=== PATIENT | male | born 1990 | race Caucasian/White ===

== ENCOUNTER 2024-09-19 09:32 | Day surgery (SDC) | payer BC ==
[2024-09-17 08:53] VITALS: BMI 21.8
--- NOTE | 2024-09-19 08:36 | P.GSHP ---
History of Present Illness H&P Date: 09/19/24 CHIEF COMPLAINT: GERD and change in bowel habits HISTORY OF PRESENT ILLNESS: The patient is a 34-year-old male who presents with gastroesophageal reflux disease and change in bowel habits. Upper and lower endoscopy were offered for further evaluation and management. PAST MEDICAL HISTORY: Please see list. PAST SURGICAL HISTORY: Please see list. MEDICATIONS: Please see list. ALLERGIES: Please see list. SOCIAL HISTORY: No illicit drug use FAMILY HISTORY: No reports of Crohn disease or ulcerative colitis. REVIEW OF ORGAN SYSTEMS: CONSTITUTIONAL: No reports of fevers or chills. GI: Denies any blood in stools or constipation. PHYSICAL EXAM: VITAL SIGNS: Stable GENERAL: Well-developed pleasant in no acute distress. HEENT: No scleral icterus. Extraocular movements grossly intact. Moist buccal mucosa. NECK: Supple without lymphadenopathy. CHEST: Unlabored respirations. Equal bilateral excursions. CARDIOVASCULAR: Regular rate and rhythm. Distal 2+ pulses. ABDOMEN: Soft, nondistended. MUSCULOSKELETAL: No clubbing, cyanosis, or edema. ASSESSMENT: 1. Gastroesophageal reflux disease 2. Change in bowel habit PLAN: 1. Recommend proceeding with an upper and lower endoscopy Past Medical History Past Medical History: Hypertension, Thyroid Disorder Additional Past Medical History / Comment(s): "stomach problems for most of my adult life",hyperthyroidism,cerebral palsy-uses walker. History of Any Multi-Drug Resistant Organisms: None Reported Past Surgical History: Orthopedic Surgery Additional Past Surgical History / Comment(s): hardware ghulam ankle and ghulam tibia,several orthopedic surgeries r/t cp Past Anesthesia/Blood Transfusion Reactions: No Reported Reaction Smoking Status: Never smoker - Past Family History Mother Family Medical History: No Reported History Medications and Allergies Home Medications Medication Instructions Recorded Confirmed Type atenoloL [Tenormin] 25 mg PO BID 09/17/24 09/17/24 History methIMAzole 20 mg pe PO QAM 09/17/24 09/17/24 History Allergies Allergy/AdvReac Type Severity Reaction Status Date / Time albuterol Allergy hives Verified 09/17/24 08:42 propranolol AdvReac severe Verified 09/17/24 08:44 peripheral edema leg
[2024-09-19 09:51] VITALS: TEMP 96.9
[2024-09-19] MEDS: LACTATED RINGERS 1,000 ML IV SCH (10:04)
[2024-09-19] MEDS: IV FLUID CONTINUATION 1,000 ML IV ONE (10:05)
[2024-09-19] MEDS ORDERED: LIDOCAINE 1% INJ 10MG/ML (20 ML MDV) ONE (11:00)
[2024-09-19] MEDS ORDERED: PROPOFOL 10 MG/ML 20 ML VIAL IV ONE (11:00)
--- NOTE | 2024-09-19 11:15 | P.PCN ---
Date of Procedure: 09/19/24 Description of Procedure: PREOPERATIVE DIAGNOSIS: Gastritis Gastroesophageal reflux disease. POSTOPERATIVE DIAGNOSIS: Gastroesophageal reflux disease with esophageal ulcers Chronic gastritis Acute gastric ulcer with bleeding Diaphragmatic hiatal hernia OPERATION: Esophagogastroduodenoscopy with cold forceps biopsies along esophagus, antrum and duodenum SURGEON: Hilda Blackwood MD ANESTHESIA: MAC. INDICATIONS: The patient is a 34-year-old male who presents with gastritis. Benefits and risks of the procedure were described. Informed consent was obtained. DESCRIPTION: The patient was brought into the endoscopy suite and laid in the left lateral decubitus position. An Olympus gastroscope was passed along the posterior oropharynx down to the distal esophagus where the squamocolumnar junction was encountered at 37 cm from the incisors. The stomach was entered and no bile reflux was found. Additional findings are listed below. Biopsies with cold forceps were obtained of the antrum. The first through third portion of the duodenum was examined. Retroflexion of the scope confirmed Hill grade 3 lower esophageal valve. The squamocolumnar junction demonstrated LA grade C erosive esophagitis. The stomach was desufflated. The patient tolerated the procedure well. FINDINGS: Squamocolumnar junction 37 cm from the incisors. Diaphragmatic hiatus at 40 cm. Hiatal hernia, 3 cm Hill grade 2 lower esophageal valve. LA grade C erosive esophagitis with esophageal ulcer, bleeding Acute punctate ulcer, gastric body, 2 mm with bleeding Biopsies obtained of the duodenum. Chronic gastritis with biopsies obtained. RECOMMENDATIONS: Omeprazole 40 mg daily for 2 weeks
[2024-09-19 11:47] VITALS: BP 100/54; PULSE 78; RESP 16
--- NOTE | 2024-09-19 12:27 | P.PCN ---
Date of Procedure: 09/19/24 Description of Procedure: PREOPERATIVE DIAGNOSIS: Abnormal stool function Change in bowel habits POSTOPERATIVE DIAGNOSIS: Microscopic colitis OPERATION: Colonoscopy to the cecum, ileocecal valve and appendiceal orifice. Colonoscopy with random cold forceps biopsies for microscopic colitis SURGEON: Hilda Blackwood MD. ANESTHESIA: MAC. INDICATIONS: The patient is a 34-year-old male who presents with altered stools including change in bowel habits. Benefits and risks were described and informed consent was obtained. DESCRIPTION OF PROCEDURE: The patient had undergone Suprep. The patient had been brought into the operating room and laid in the left lateral decubitus position. After adequate i ntravenous sedation, the rectum was examined with 2% lidocaine jelly. No external hemorrhoids were encountered. The rectal tone was within normal limits. No lesions were palpated in the rectal vault. An Olympus colonoscope was advanced until the cecum, ileocecal valve and appendiceal orifice were clearly viewed. The prep was good. No scattered diverticulosis was encountered. No colonic polyps were found. Cold forceps biopsies randomly were obtained for microscopic colitis. Retroflexion of the scope demonstrated grade 1 internal hemorrhoids without active bleeding or inflammation. The colon was desufflated. The patient had tolerated the procedure well. Withdrawal time was over 6 minutes. FINDINGS: Aronchick preparation quality scale 2 (1-5) Internal hemorrhoids, grade 1 No external prolapsed hemorrhoids. No arteriovenous malformations. No adenomatous polyps. Cold forceps biopsies obtained for microscopic colitis RECOMMENDATIONS: Lower endoscopy as needed Plan - Discharge Summary Discharge Rx Participant: No New Discharge Prescriptions: New Omeprazole [PriLOSEC] 40 mg PO DAILY #14 cap Continue methIMAzole 20 mg pe PO QAM atenoloL [Tenormin] 25 mg PO BID Discharge Medication List atenoloL [Tenormin] 25 mg PO BID 09/17/24 [History] methIMAzole 20 mg pe PO QAM 09/17/24 [History] Omeprazole [PriLOSEC] 40 mg PO DAILY #14 cap 09/19/24 [Rx] Follow up Appointment(s)/Referral(s): Hilda Blackwood MD [STAFF PHYSICIAN] - 10/16/24 2:30 pm Patient Instructions/Handouts: *Surgery [facility] - (Anesthesia) Discharge Instructions Outpatient Surgery, Peptic Ulcer (DC), Microscopic Colitis (DC) Discharge Disposition: HOME SELF-CARE
== END 2024-09-19 12:36 | disposition home or self-care (01) ==
LOC: ORWHC2ENDO 09:32
PROVIDERS: ATTEND Surgery Plastic and Reconstructive Surgery
DX: R13.10 Dysphagia, unspecified (principal); R19.4 Change in bowel habit; K29.50 Unspecified chronic gastritis without bleeding; K21.00 Gastro-esophageal reflux disease with esophagitis, without bleeding; K64.0 First degree hemorrhoids; K44.9 Diaphragmatic hernia without obstruction or gangrene; K25.3 Acute gastric ulcer without hemorrhage or perforation; I10 Essential (primary) hypertension; G80.9 Cerebral palsy, unspecified; E05.90 Thyrotoxicosis, unspecified without thyrotoxic crisis or storm
CPT/HCPCS: 45380; 43239; J2003; J2704; 88305